=== PATIENT | female | born 1945 | race African-American/Black ===

== ENCOUNTER 2022-10-03 04:32 | Day surgery (SDC) | payer OTHER ==
[2022-10-02 08:31] VITALS: BMI 23.3
[2022-10-03 09:32] VITALS: TEMP 97.5
[2022-10-03 11:33] VITALS: BP 159/55; PULSE 63; RESP 19
== END 2022-10-03 11:20 | disposition home or self-care (01) ==
LOC: JASU-ENDO 04:32
PROVIDERS: ATTEND Internal Medicine Gastroenterology
PROC: 0DBH8ZX Excision of Cecum, Via Natural or Artificial Opening Endoscopic, Diagnostic (ICD-10-PCS; principal; 2022-10-03 09:00)
DX: Z12.11 Encounter for screening for malignant neoplasm of colon (principal); D12.0 Benign neoplasm of cecum
CPT/HCPCS: 82962; 88305-TC